=== PATIENT | female | born 1985 | race Caucasian/White ===

== ENCOUNTER 2025-01-28 10:42 | Emergency (ER) | payer OTHER ==
[~2025-01-28] VITALS: Ht 157.5 cm; Wt 46.3 kg
[2025-01-28] MEDS ORDERED: ONDANSETRON HCL/PF 4 MG/2 ML VIAL ONE (11:02)
[2025-01-28 11:08] LABS: BASOPHILS % (AUTO) 0.3 % (0.0-2.0); EOSINOPHILS # (AUTO) 0.1 K/uL (0.0-0.7); HEMATOCRIT 35 % (33-45); HEMOGLOBIN 12.4 g/dL (11.5-14.8); LYMPHOCYTES % (AUTO) 10.1 % (20.0-44.0); MEAN CORPUSCULAR HEMOGLOBIN 32 PG (26.0-33.0); MEAN CORPUSCULAR HGB CONC 36 g/dl (31.0-36.0); MEAN CORPUSCULAR VOLUME 90 fL (82-100); MONOCYTES # (AUTO) 0.4 K/uL (0.1-1.30); MONOCYTES % (AUTO) 3.6 % (2.0-12.0); NEUTROPHILS # (AUTO) 8.2 K/uL (1.8-8.9); PLATELET COUNT (AUTO) 292 K/uL (150-450); RED BLOOD CELL COUNT(AUTO) 3.84 MIL/uL (4.0-5.2); RED CELL DISTRIBUTION WIDTH 12.9 % (11.5-15.0); WHITE BLOOD COUNT (AUTO) 9.6 K/uL (4.3-11.0)
[2025-01-28 11:16] LABS: CALCIUM, SERUM 9.5 mg/dL (8.5-10.1); CREATININE 0.5 mg/dL (0.6-1.3); POTASSIUM 3.7 mmol/L (3.5-5.1)
[2025-01-28] MEDS: IV NS 0.9% 1,000 ML BAG IV ONE (11:30)
[2025-01-28] MEDS: ONDANSETRON HCL/PF 4 MG/2 ML VIAL IVP ONE (11:31)
[2025-01-28] MEDS: FAMOTIDINE (20 MG) 20 MG TABLET PO ONE (12:14)
[2025-01-28] MEDS ORDERED: FAMOTIDINE (20 MG) 20 MG TABLET ONE (12:14)
[2025-01-28] MEDS ORDERED: DOXY1TAB4 PO (12:31)
[2025-01-28] MEDS ORDERED: MAG HYDROX/AL HYDROX/SIMETH 30 ML UDC ONE (12:42)
[2025-01-28] MEDS: MAG HYDROX/AL HYDROX/SIMETH 30 ML UDC PO ONE (12:42)
[2025-01-28 13:25] VITALS: BP 110/72; TEMP 98; O2SAT 100
== END 2025-01-28 13:28 | disposition home or self-care (01) ==
LOC: ER 10:45
DX: O21.0 Mild hyperemesis gravidarum (principal); O26.892 Other specified pregnancy related conditions, second trimester; Z3A.17 17 weeks gestation of pregnancy
CPT/HCPCS: 99285; 96374; 76805; 96361; 85025; 80048; 36415; J2405; J7030